=== PATIENT | male | born 1960 | race Caucasian/White ===

== ENCOUNTER → 2020-05-06 13:52 | Outpatient (CLI) | payer MEDICARE, SELFPAY ==
--- NOTE | 2020-05-06 | DI.MRI.S_ITS ---
PROCEDURE: MR KNEE RT WO CON INDICATIONS: RIGHT KNEE PAIN TECHNIQUE: Noncontrast sagittal PD fast spin echo and T2 fast spin echo with fat saturation, sagittal 3-D FLASH with fat saturation; coronal T1 spin echo and PD fast spin echo with fat saturation, and axial PD fast spin echo with fat saturation through the knee. COMPARISON: [facility] [place], CR, XR KNEE 4+ VIEWS RIGHT, 04/25/2020, 15:43. FINDINGS: Image quality: Excellent. Menisci: There is horizontal oblique tearing of the posterior horn and body of the medial meniscus extending to the middle third of the tibial articular surface. There is mild intrasubstance degeneration in the lateral meniscus without a discrete tear. Cruciate ligaments: The anterior and posterior cruciate ligaments appear intact. Medial structures: Edema superficial to the medial collateral ligament is consistent with a low-grade sprain. The semimembranosus tendon insertions and meniscocapsular junction appear intact. Visualized portions of the pes anserinus tendons appear normal. No abnormal bursal fluid. Lateral structures: The lateral collateral ligament, long and short heads of the biceps femoris tendon appear intact. The popliteus tendon appears intact. No signs of posterolateral corner injury. Iliotibial band appears normal. Anterior structures: Nonedematous osseous fragments in the distal patellar tendon are compatible with a history of [place]-Schlatter syndrome. There is mild distal quadriceps tendinosis. No femoral trochlear dysplasia or ventral trochlear prominence. No edema in the infrapatellar fat pad. Bones and cartilage: Edema in the medial tibial plateau may be reactive to the adjacent meniscal tear versus secondary to overlying cartilage loss. Areas of hypointense signal in the medullary cavity of the distal femoral metadiaphysis are most likely secondary to a chronic bone infarct, and appear benign. Full-thickness cartilage loss is seen in the weight-bearing portion of the medial femorotibial compartment with subchondral cystic changes and edema. Small marginal osteophytes are present. There is full-thickness cartilage loss in the posterior weight-bearing portion of the lateral femoral condyle with subchondral osteophyte formation. Subchondral osteophyte formation is seen in the adjacent portion of the lateral tibial plateau. Marginal osteophytes are present. Full-thickness cartilage loss is seen in the medial patellar facet with subchondral edema. Areas of high-grade and full-thickness cartilage loss are seen in the medial and lateral trochlea with subchondral edema. Marginal osteophytes are present. Joint space: There is a moderate joint effusion. A small medial popliteal cyst is present. IMPRESSION: 1. Horizontal oblique tearing of the posterior horn and body of the medial meniscus extending to the middle third of the tibial articular surface. 2. Low-grade sprain of the proximal medial collateral ligament. 3. Tricompartmental osteoarthrosis with areas of full-thickness cartilage loss in all compartments and tricompartmental marginal osteophyte formation. 4. Mild distal quadriceps tendinosis. Ossifications in the distal patellar tendon are compatible with a history of [place]-Schlatter syndrome. 5. Moderate joint effusion. Small medial popliteal cyst. Dictated by: Rigo Fabian M.D. on 05/06/2020 at 15:40 Approved by: Rigo Fabian M.D. on 05/06/2020 at 15:54
== END ==
PROVIDERS: PCP Family Medicine; Referring Provider Orthopaedic Surgery; Visit Provider Orthopaedic Surgery
DX: M25.561 Pain in right knee (principal); S83.241A Other tear of medial meniscus, current injury, right knee, initial encounter; S83.411A Sprain of medial collateral ligament of right knee, initial encounter; M17.11 Unilateral primary osteoarthritis, right knee; M71.21 Synovial cyst of popliteal space [Baker], right knee; M25.461 Effusion, right knee
CPT/HCPCS: 73721

== ENCOUNTER → 2022-03-01 11:00 | Outpatient (CLI) | payer OTHER, SELFPAY ==
[2022-03-01 12:37] LABS: Add Manual Diff / Slide Review NO; Basophils Absolute Auto 0 /uL (0-100); Basophils Percent Auto 0.4 % (0-2); Eosinophils Absolute Auto 100 /uL (0-450); Eosinophils Percent Auto 0.5 % (2-4); Hematocrit 39.7 % (41-53); Hemoglobin 13.1 g/dL (13.5-17.5); Lymphocytes Absolute Auto 1300 /uL (1100-4500); Lymphocytes Percent Auto 12.4 % (25-40); Mean Corpuscular HGB Conc 33.1 % (30-36); Mean Corpuscular Hemoglobin 29.6 PG (26-34); Mean Corpuscular Volume 89.3 fL (80-100); Monocytes Absolute Auto 500 /uL (0-900); Neutrophils Absolute Auto 8400 /uL (1500-7000); Neutrophils Percent Auto 81.7 % (50-75); Platelet Count 340 X10^3/uL (150-400); Red Blood Cell Count 4.44 X10^6/uL (4.5-5.9); Red Cell Distribution Width 13.7 % (11.6-14.8); White Blood Cell Count 10.3 X10^3/uL (4.5-11.0)
[2022-03-01 12:43] LABS: Appearance Urine UA CLEAR; Bilirubin Urine UA NEGATIVE (NEGATIVE); Color Urine UA YELLOW; Glucose Urine UA TRACE g/dL (Negative); Ketones Urine UA NEGATIVE (NEGATIVE); Leukocyte Esterase Urine UA NEGATIVE (NEGATIVE); Nitrite Urine UA NEGATIVE (Negative); Occult Blood Urine UA NEGATIVE (Negative); Protein Urine UA NEGATIVE (Negative); Urobilinogen Urine UA 0.2 E.U./dL (0.2)
[2022-03-01 12:45] LABS: Hemoglobin A1C% w Est Avg Glu 5.7 % (4.0-6.0)
[2022-03-01 12:55] LABS: BUN Creatinine Ratio 22.2 (6-22); Blood Urea Nitrogen 18 mg/dL (9-20); Calcium 8.8 mg/dL (8.4-10.2); Carbon Dioxide 26 mmol/L (22-32); Chloride 104 mmol/L (98-107); Estimated Glomerular Filt Rate > 60 mL/min (>60); Glucose 100 mg/dL (80-110); HEMOLYSIS < 15 (0-50); Potassium 4.1 mmol/L (3.4-5.1); Sodium 135 mmol/L (137-145)
[2022-03-01 21:24] LABS: Bacteria Urine None Seen; Culture Indicated Urine Cult Not Indicated; RBC Urine None Seen (0-5/HPF); WBC Urine None Seen (0-5/HPF)
== END ==
LOC: LAB 11:05 → RESP 11:06
PROVIDERS: PCP Family Medicine; Referring Provider Orthopaedic Surgery; Visit Provider Orthopaedic Surgery
DX: Z01.818 Encounter for other preprocedural examination (principal); R73.9 Hyperglycemia, unspecified; Z01.812 Encounter for preprocedural laboratory examination; N39.0 Urinary tract infection, site not specified
CPT/HCPCS: 36415; 80048; 81001; 83036; 85025; 93005

== ENCOUNTER → 2022-03-14 10:00 | Outpatient (CLI) | payer OTHER, SELFPAY ==
[2022-03-14 11:04] LABS: COVID19 -Nasal RAPID Negative (Negative)
== END ==
PROVIDERS: PCP Family Medicine; Referring Provider Orthopaedic Surgery; Visit Provider Orthopaedic Surgery
DX: Z20.822 Contact with and (suspected) exposure to COVID-19 (principal)
CPT/HCPCS: 87635; C9803

== ENCOUNTER 2022-03-15 05:46 | Day surgery (SDC) | payer OTHER, SELFPAY ==
[2022-03-08 09:37] VITALS: BMI 27.3
[2022-03-15] VITALS (8 sets, daily range): BP systolic 108–162; BP diastolic 71–96; PULSE 52–94; RESP 13–18; TEMP 35.8–36.8; O2SAT 98–100; BMI 27.3
[2022-03-15] MEDS: ACETAMINOPHEN 325 MG TABLET 975 MG PO (07:03)
[2022-03-15] MEDS: CELECOXIB 200 MG CAPSULE PO (07:05)
[2022-03-15] MEDS: PREGABALIN 75 MG CAPSULE PO (07:05)
[2022-03-15] MEDS: VANCOMYCIN 1,000 MG/200 ML PIGGYBACK 200 MG IV ×2 (07:20→08:42)
[2022-03-15] MEDS: LACTATED RINGERS 1,000 ML 42 ML IV ×2 (07:20→09:21)
--- NOTE | 2022-03-15 07:37 | PM.PREOP ---
Pre-operative Note COVID-19 COVID-19 status: Negative Interval Note History & Physical reviewed/Exam performed by Physician: Yes Changes to H&P: No
--- NOTE | 2022-03-15 07:38 | P.OP_ITS ---
Operative Date/Time/Diagnoses Date of procedure: 03/15/22 Time of procedure: 07:30 Pre-op diagnosis: left hip OA Post-op diagnosis: same Procedure & Clinicians Procedure: Left total hip arthroplasty anterior approach Same procedure as scheduled: Yes Indications: The patient has had progressively worsening left hip pain with radiographic hutson ges consistent with arthritis. Non-operative management has failed and the patient has requested total hip replacement. The risks, benefits and alternatives to surgery were discussed with the patient prior to proceeding. Risks discussed included, but were not limited to, failure to relieve pain, leg length discrepancy, dislocation, stiffness, infection, nerve damage, deep venous thrombosis, pulmonary embolism, stroke, coma, heart attack, permanent paralysis and , as well as the potential need for eventual revision of the prosthetic. Surgeon: Daniela De Leon Community Engagement Representative: Shamar Alford Anesthesia Type: General and Spinal Operative Notes Findings: Severe left hip OA, adequate bone, adequate stability Closure Type: primary Specimen(s): none sent Prosthetic devices, grafts, tissues, transplants, or devices: De Leon [employer] Nephew anthology 7 standard offset, 58 mm Redapt cup, neutral poly liner, +0 by 36 mm Oxinium head Estimated Blood Loss (mL): 250 Blood products transfused: none Procedure in detail: The patient was brought to the operating room. Patient was carefully positioned in the supine position. Time-out was performed and antibiotics were given. Anesthesia was induced. He was positioned in the on the table in order to allow hyperextension of the hip. The left lower extremity was prepped and draped in a standard sterile fashion. An anterior left hip incision was made 1 fingerbreadth lateral to the anterior superior iliac spine and extended distally towards the greater trochanter. Dissection was carried out through skin and subcutaneous tissues. Superficial hemostasis was achieved. The fascia over the tensor fascia niki was defined and incised with a knife. Two Allis clamps were used to grasp the fascia. Tensor fascia niki was retracted laterally. A gelpi retractor was placed. Dissection was carried out down along the neck. The circumflex vessels were carefully identified and cauterized with the Aqua Mantis. There was good visualization of the femoral neck. A Cobra was placed superior to the neck and the gluteus fibers were carefully stripped from that superior aspect of the capsule. A 2nd retractor was placed along the inferior aspect of the neck. The rectus insertion along the capsule was partially released. A 3rd retractor that was then gently placed over the rim of the acetabulum under the rectus. Capsule was carefully incised and released from the intertrochanteric line circumferentially superior to the mid sagittal line and inferiorly to the mid sagittal line until the lesser trochanter was palpable. A tag stitch was placed both in the superior and inferior limb of the capsular insertion. Along the acetabulum capsule was also released up to the mid sagittal 12:00 position. A portion of the labrum was resected. A saw was used to perform an osteotomy at the level of the intertrochanteric line and the junction of the superior femoral neck leaving approximately 1 finger breath of residual inferior neck above the lesser trochanter. A 2nd cut was made along the femoral neck at the base of the head and a napkin ring of neck was removed. Corkscrew was placed in the femoral head and the head was removed without difficulty. Retractors were then repositioned around the acetabulum. Residual labrum was resected and additional osteophytes were removed. A reamer that was 4 mm below the templated size was placed by hand in the acetabulum and it was reamed to centralize the acetabulum. It was then reamed up to 2 under the templated size and fluoroscopy was brought in to confirm the position of the reaming and depth of reaming. I reamed 1 under the anticipated size. A trial cup was placed and noted that it was appropriately sized and fluoroscopy confirmed position and depth. The component was open and inserted without difficulty fluoroscopic imaging was used to confirm that the cup had been adequately seated and was well positioned. It was further stabilized with a single screw. Neutral poly liner was placed. The cup was tested and noted to be stable. Attention was then directed to the femur. The femur was gently hyperextended additional capsular release was performed as needed in order to allow adequate visualization of the proximal femur with elevation of the femur. Patient was placed in a hyperextended slightly adducted position with maximum external rotation. Box osteotome was used to check for any residual neck as well as sclerotic bone along the trochanter. Boston pepper was placed in the femur. Additional broaching was performed. Canal finder was used to determine the alignment of the canal and position. Size 1 broach was placed. The canal was then appropriately broached up to the templated size as long as there was adequate stability of the broach and serial advancement of the broach without excessive impingement. Specific attention was directed at avoiding varus attempting to direct the distal aspect of the broach more anteriorly and avoiding excessive anteversion. Trial reduction showed acceptable range of motion, good stability, no posterior impingement, mandaeism of leg length and appropriate lateral shuck. I also hyperflexed the hip and checked that there was no impingement anteriorly and there was good stability with flexion, adduction and internal rotation. Marcaine and Exparel were injected. The stem was placed without difficulty. Repeat trial reduction and x-ray showed acceptable overall position, length, and no evidence of the femoral fracture. Final head was placed. Wound was meticulously irrigated with normal saline. The hip was reduced and additional Exparel and Marcaine were injected. The capsule was closed with interrupted nonabsorbable sutures. The fascia of the tensor was closed with interrupted and running Vicryl. No drain was placed. Any tensor fascia niki muscle that appeared to be contused or injured which was a minimal amount was carefully resected. Capsule around the tensor was injected with Exparel and Marcaine. The skin was closed with barbed stitches for the subcutaneous tissue and skin. We also used surgical glue. The wound was dressed sterilely. Brief Betadine soak was also used and was meticulously irrigated with normal saline. Patient was transferred to recovery room in satisfactory condition. Complications: none Post-operative Condition: stable Disposition: Acute Care Plan for aftercare: The patient will be maintained on a standard total hip replacement protocol with weight bearing as tolerated and anterior hip precautions. The patient will receive Aspirin and sequential compression devices for DVT prophylaxis. The patient will be discharged home when safe for the home environment.
[2022-03-15] MEDS: CEFAZOLIN 2 GM/100 ML PREMIX 100 ML IV ×2 (08:20→17:21)
[2022-03-15] MEDS: TRANEXAMIC ACID 1,000 MG VIAL 1000 MG INJ ×2 (08:20→10:49)
[2022-03-15] MEDS: BUPIVACAINE 0.25% (PF) 60 ML, EPINEPHrine 0.3 MG INJ (08:43)
[2022-03-15] MEDS: BUPIVACAINE LIPOSOME 266 MG/20 ML VIAL INJ ×2 (08:44→10:48)
--- NOTE | 2022-03-15 08:47 | SUR.OPER ---
Supine on padded [place] table with bilateral legs secured in padded positioning boots and suspended in positioning spars, operative leg in traction per surgeon. Head on one pillow. Arm on non-operative side secured on padded armboard <90 degrees abduction. Arm on operative side padded and resting across chest then secured with tape over sheet. Padded perineal post in place per surgeon.
--- NOTE | 2022-03-15 11:03 | DI.RAD.S_ITS ---
PROCEDURE: XR HIP W PEL IF DONE LT 2V INDICATIONS: LEFT ANTERIOR HIP TECHNIQUE: AP pelvis and lateral view of the left hip acquired. COMPARISON: [facility], CR, XR PELVIS WITH LATERAL HIP LEFT, 01/19/2022, 14:29. [facility], CR, XR HIP W PEL IF DONE LT 2V, 03/15/2022, 9:56. FINDINGS: Bones: Patient is status post left hip arthroplasty, with hardware components in expected positions. The hip joint appears congruent. The visualized bony structures appear intact. Soft tissues: Overlying postoperative changes are noted. No suspicious soft tissue densities. IMPRESSION: Expected appearance status post left hip arthroplasty. Dictated by: Cony Luna M.D. on 03/15/2022 at 12:52 Approved by: Cony Luna M.D. on 03/15/2022 at 13:04
[2022-03-15] MEDS: OXYCODONE/ACETAMINOPHEN 5/325 TABLET 1 TAB PO (11:20)
[2022-03-15] MEDS: ONDANSETRON 4 MG/2 ML INJ IV (11:20)
[2022-03-15] MEDS: ACETAMINOPHEN 325 MG TABLET 650 MG PO ×2 (12:26→17:21)
[2022-03-15] MEDS: LACTATED RINGERS 1,000 ML 125 ML IV (12:27)
[2022-03-15] MEDS: IBUPROFEN 400 MG TABLET PO ×2 (12:27→17:19)
[2022-03-15] MEDS: polyethylene glycoL 3350 17 GM POWD.PACK PO (12:33)
--- NOTE | 2022-03-15 13:13 | DI.RAD.S_ITS ---
PROCEDURE: XR HIP W PEL IF DONE LT 2V INDICATIONS: INNER OP TECHNIQUE: 4 intraoperative fluoroscopic images obtained. COMPARISON: None. FINDINGS: Four intraoperative fluoroscopic images obtained for left hip arthroplasty. IMPRESSION: Intraprocedural fluoroscopy was provided for guidance and anatomical localization. Please see the procedure report for further details. Dictated by: Rigo Kat M.D. on 03/15/2022 at 18:11 Approved by: Rigo Kat M.D. on 03/15/2022 at 18:12
--- NOTE | 2022-03-15 14:50 | PT.IIE ---
Current Diagnoses Unilateral primary osteoarthritis, left hip (03/15/22) Surgery Performed Operation Date: 03/15/22 07:45 Actual Procedures p Total Hip Arthroplasty/Anterior Approach(Left) - Daniela De Leon MD Surgical History (Last Reviewed 03/15/22 @ 06:56 by Beulah Werner, RN) History of orthopedic surgery History of prosthetic unicompartmental arthroplasty of right knee (~2020) Hx of arthroscopy of left knee Hx of hemorrhoidectomy Hx of hernia repair Hx of laminectomy (~2016) Hx of laminectomy (~2017) Status post cervical spinal fusion (~2014) Medical History (Last Reviewed 03/15/22 @ 06:56 by Beulah Werner, TRAN) Anesthesia complication Osteoarthritis Physical Therapy Inpatient Evaluation/Re-Eval M1 PT/OT-IP Prior Functional Status Start: 03/15/22 17:05 Freq: NEEDED Status: Active Protocol: Document 03/15/22 14:50 AB (Rec: 03/15/22 17:16 AB [id number]) Medical Review Prior Functional Status Medical History Reviewed Yes Communication able to make needs known Mobility and Gait pt stated that he is independent with all mobilities and ambulation without AD Social History Household Members none Living Arrangements RV Number of Floors (Floors) One Floor Number of Stairs To Enter/Railing? 3 steps L rail ascending Home Environment High Toilet,Tub/Shower,Built- In Shower Seat Home Equipment Front Wheel Walker,Straight Cane,Hand Held Shower Additional Social History Comment pt stated that he has friends/ neighbors around to assist him if needed M2 PT-IP Current Condition Start: 03/15/22 17:05 Freq: NEEDED Status: Active Protocol: Document 03/15/22 14:50 AB (Rec: 03/15/22 17:16 AB [id number]) Physical Therapy Current Condition Current Condition Evaluation Date 03/15/22 Treatment Diagnosis s/p L JOSE anterior approach; difficulty in walking Onset Date 03/15/22 M3 PT-IP Subjective Start: 03/15/22 17:05 Freq: NEEDED Status: Active Protocol: Document 03/15/22 14:50 AB (Rec: 03/15/22 17:16 AB [id number]) Subjective Physical Therapy Visit Type Type Initial Evaluation Visit Start Time 14:50 Visit Stop Time 15:50 Total Visit Minutes 60 Number of PACKAGE WINDER Visits 0 Physical Therapy Visit Comments Patient Comments agreeable to do PT M4 PT-IP Mobility and Gait Start: 03/15/22 17:05 Freq: NEEDED Status: Active Protocol: Document 03/15/22 14:50 AB (Rec: 03/15/22 17:16 AB [id number]) PT-Bed Mobility Assessment Supine to Sit Supine to Sit Standby Assistance Sit to Supine Sit to Supine Standby Assistance PT-Transfer Assessment Sit to and From Stand Sit to and from Stand Standby Assistance Equipment Transfer Assistive Device Gait Belt,Front Wheeled Walker Orthotic/Prosthetic Devices or Brace: No Transfers Transfer Destination Chair Transfer Technique ambulated Transfer Ability Level of Assist Standby Assistance,Contact Guard Assistance,1 Person Assistance,Use of Upper Extremities Comments Mobility Comments educated pt regarding anterior hip precautions. pt able to recall the precautions. completed supine to sit SBA. able to sit on EOB SBA. completed sit to stand CGA. pt pulled on FWW to get up. pt sat back down on EOB. educated on sit<>stand technique for safety and completed x 2 and able to completed SBA to CGA. ambulated in room using FWW SBA to CGA ~ 12 ft to chair. pt agreed to do stairs. educated on stair climbing. completed sit to stand SBA and ambulated out in the hallway ~ 100 ft using FWW SBA to occasional CGA. completed up/down steps holding on to L rail with B rails SBA and repeated x 2 sets. assisted pt back to his room. ambulated from w/c to chair using FWW SBA. positioned pt on the chair. call light and table placed within reach. Gait Assessment Gait Gait Assistance Required: Standby Assistance,Contact Guard Assist Distance (Feet) 100 Able to Maintain Weight Bearing Status Yes During Gait Assistive Devices Assistive Device Gait Belt,Front Wheeled Walker Orthotic/Prosthetic Devices or Brace: No Gait Deviations General Gait Pattern Decreased Stride Length, Decreased Feet Clearance Factors Limiting Gait Function Factors Limiting Gait Function Decreased Activity Tolerance, Decreased Sensation,Decreased Strength,Limited Range of Motion,Pain,Poor Balance,Poor Safety Awareness Stair Climbing Assessment Evaluation Level of Assist On Stairs Standby Assistance Devices Stair Climbing Assistive Devices Left Railing Technique/Endurance Stair Climbing Direction Ascend and Descend Stair Climbing Technique Step to Step Number of Steps Climbed 3 Query Text: Stair Climbing Set # Repetitions (reps) 2 PT-Balance Assessment Sitting Balance and Reactions Static Sitting Balance Ability Normal Dynamic Sitting Balance Ability Good Standing Balance and Reactions Static Standing Balance Ability Fair Dynamic Standing Balance Ability Fair Device Used FWW M5 PT-IP Objective Assessments Start: 03/15/22 17:05 Freq: NEEDED Status: Active Protocol: Document 03/15/22 14:50 AB (Rec: 03/15/22 17:16 AB [id number]) Orientation Orientation/Cognition Level of Alertness Alert Orientation Name,Place,Situation Safety Awareness Decreased Safety Awareness Gross Range of Motion Lower Extremity ROM Assessment Within Functional Limits Strength Lower Extremity Strength Assessment Left Impaired Hip 3+/5 Knee 4-/5 Coordination Assessment Gross Coordination Gross Coordination WNL Sensation Assessment Sensation Gross Sensation Right LE Impaired,Left LE Impaired Comments Sensation Comments c/o slight numbness on anterior thighs Muscle Tone Muscle Tone WNL Yes M6 PT-IP Treatment Start: 03/15/22 17:05 Freq: NEEDED Status: Active Protocol: Document 03/15/22 14:50 AB (Rec: 03/15/22 17:16 AB [id number]) Physical Therapy Treatment Education Education Provided Precautions,Weight Bearing Status,Post-Op Packet,Safety M7 PT-IP Assessment and Plan Start: 03/15/22 17:05 Freq: NEEDED Status: Active Protocol: Document 03/15/22 14:50 AB (Rec: 03/15/22 17:16 AB [id number]) PT Summary Assessment and Plan Potential Rehabilitation Potential Fair Status of Condition at Evaluation Stable Summary Impairments Pain,ROM,Strength,Balance, Coordination,Sensation,Tone, Cognition,Bed Mobility, Transfers,Gait,Activity Tolerance Assessment Summary pt requiring SBA to CGA with mobility using FWW. pt has out pt PT scheduled. pt stated that he has friends that lives closeby his motor home and can assist him if needed. pt may go home when medically stable. Goals Bed Mobility Goal Independent Transfer Goal Independent,Front Wheeled Walker Gait Goal Independent,Front Wheel Walker Gait Distance 250 Other Goals up/down steps L rail mod I Days to Meet Goals 5 Frequency of Treatment Frequency Of Treatment Twice a Day Treatment Plan Physical Therapy Treatment Plan Bed Mobility Training,Transfer Training,Gait Training, Therapeutic Exercise,Balance Retraining,Post Op Education, Discharge Planning,Hot or Cold Pack,Neuromuscular Re-ed, Coordination Retraining,Manual Therapy Precautions Anterior Hip Precautions No Hip Extension,No Hip External Rotation Weight Bearing Status Weight Bearing Status Weight Bear as Tolerated Allowed Weight Bearing Amount (enter % LLE WBAT or #) (%) Recommendations To Nursing Amount of Assist Needed 1 Person Assist Discharge Recommendations PT Discharge Recommendations Home with Assistance, Outpatient PT Transportation Needs at Discharge Private Vehicle
[2022-03-15] MEDS: OXYCODONE IR 5 MG TABLET PO (17:24)
--- NOTE | 2022-03-15 18:26 | PC.NURSE ---
Pt is AxOx4, needs STA to toilet and cooperative. VSS, c/o pain on L Hip and recieved his routine Tylenol and Ibuprofen with good effect. Pt is cleared from PT and ready to d/c. Pt is voiding and eating, drinking well. Pt understood everything and d/c home today. No other changes.
== END 2022-03-15 18:54 | disposition home or self-care (01) ==
LOC: OR 05:49 → AC 05:52
PROVIDERS: PCP Family Medicine; Referring Provider Orthopaedic Surgery; Visit Provider Orthopaedic Surgery
PROC: (CPT 27130; principal; 2022-03-15 07:45)
DX: M16.12 Unilateral primary osteoarthritis, left hip (principal)
CPT/HCPCS: 27130; 73502; 76000; 97161; 97530; C1776; C9290; J0171; J0690; J1100; J2250; J2405; J2704; J3010